=== PATIENT | female | born 1960 | race Caucasian/White ===

== ENCOUNTER 2018-02-03 14:17 | Emergency (ER) | END 2018-02-03 16:54 | disposition left against medical advice (07) ==

== ENCOUNTER 2019-05-03 00:10 | Emergency (ER) | payer OTHER ==
[~2019-05-03] VITALS: Ht 157.5 cm; Wt 53.4 kg
[~2019-05-03 00:10] MED LIST: ACET1TAB40 PO
[2019-05-03 00:14] VITALS: Ht 157.5 cm; Wt 53.4 kg
[2019-05-03] MEDS ORDERED: LORAZEPAM 2 MG INJ IV ONE (01:00)
[2019-05-03] MEDS ORDERED: morphine 4 MG/ML VIAL IV STA (01:21)
--- NOTE | 2019-05-03 01:23 | ERD ---
ER Documentation Chief Complaint Chief Complaint HEADACHE 10/10 STARTED 3 DAYS AGO. HPI This is a 59-year-old female with a history of hypertension and multiple sclerosis who presents to the emergency room for evaluation of multiple complaints including headache, total body pain. The patient states that she has had her symptoms for the past 3 days. The patient states that she came to the ER today for evaluation of her headache and body pain. She has taken some [id number] medications without relief and came to the ER for further evaluation. ROS All systems reviewed and are negative except as per history of present illness. Allergies Allergies: Coded Allergies: Unknown: Unable to obtain (Unverified , 05/03/19) PMhx/Soc History of Surgery: Yes (breast biposy) Anesthesia Reaction: No Hx Miscellaneous Medical Probl: Yes (MS) Hx Alcohol Use: No Hx Substance Use: No Hx Tobacco Use: No Smoking Status: Never smoker Physical Exam Vitals Vital Signs Date Temp Pulse Resp B/P (MAP) Pulse Ox O2 O2 Flow FiO2 Time Delivery Rate 05/03/19 60 14 112/78 100 Room Air 00:30 (89) 05/03/19 96.3 69 15 146/66 99 00:14 (92) Physical Exam INITIAL VITAL SIGNS: Reviewed by me GENERAL: The patient is well developed and appropriate for usual state of health in no apparent distress HEENT: Pupils equal, round, and reactive to light. EOMI. There is no scleral icterus. NECK: C-spine is soft and supple, there is no meningismus. There is no cervical lymphadenopathy. LUNGS: Clear to auscultation bilaterally. There are no rales, wheezes or rhonchi. HEART: Regular rate and rhythm, no murmurs, clicks, rubs or gallops. ABDOMEN: Soft, non-tender, non-distended. There are bowel sounds in all four quadrants. No rebound or guarding. EXTREMITIES: There is no peripheral cyanosis or edema. No focal swelling or erythema. NEUROLOGICAL: The patient moves all four extremities with 5/5 strength. Cranial nerves II - XII are intact. Normal gait. Alert and oriented SKIN: There is no apparent rash or petechiae. HEME/LYMPHATIC: There is no evidence of excessive bruising or lymphedema. PSYCHIATRIC: The patient does appear to be extremely anxious Result Diagram: 05/03/19 0045 05/03/19 0045 Results 24 hrs Laboratory Tests Test 05/03/19 00:45 White Blood Count 6.1 10^3/ul Red Blood Count 4.54 10^6/ul Hemoglobin 13.8 g/dl Hematocrit 40.5 % Mean Corpuscular Volume 89.2 fl Mean Corpuscular Hemoglobin 30.4 pg Mean Corpuscular Hemoglobin Concent 34.1 g/dl Red Cell Distribution Width 12.1 % Platelet Count 231 10^3/UL Mean Platelet Volume 8.3 fl Immature Granulocytes % 0.000 % Neutrophils % 50.0 % Lymphocytes % 39.1 % Monocytes % 6.7 % Eosinophils % 3.9 % Basophils % 0.3 % Nucleated Red Blood Cells % 0.0 /100WBC Immature Granulocytes # 0.000 10^3/ul Neutrophils # 3.1 10^3/ul Lymphocytes # 2.4 10^3/ul Monocytes # 0.4 10^3/ul Eosinophils # 0.2 10^3/ul Basophils # 0.0 10^3/ul Nucleated Red Blood Cells # 0.0 10^3/ul Prothrombin Time 12.4 Sec Prothrombin Time Ratio 1.0 INR International Normalized Ratio 0.91 Activated Partial Thromboplast Time 27.1 Sec Sodium Level 144 mmol/L Potassium Level 3.7 mmol/L Chloride Level 107 mmol/L Carbon Dioxide Level 23 mmol/L Anion Gap 14 Blood Urea Nitrogen 17 mg/dl Creatinine 0.78 mg/dl Est Glomerular Filtrat Rate mL/min > 60 mL/min Glucose Level 103 mg/dl Calcium Level 10.2 mg/dl Current Medications Medications Dose Sig/Kenrick Start Time Status Last (Trade) Ordered Route PRN Stop Time Admin Dose Reason Admin Lorazepam 1 mg ONCE ONCE 05/03/19 DC 05/03/19 (Ativan) IV 01:00 05/03/19 00:52 01:01 Morphine 4 mg ONCE STAT 05/03/19 DC 05/03/19 Sulfate IV 01:21 05/03/19 01:48 (morphine) 01:22 60 mg ONCE ONCE 05/03/19 DC 05/03/19 Methylprednis IV 01:30 05/03/19 01:47 olone Sodium 01:31 Succinate (Solu-Medrol) Procedures/MDM CT brain without: No acute process This 59-year-old female presents to the emergency room for evaluation of headache for the past 3 days. On my exam the patient did appear to be extremely anxious. She had no focal neurological deficits and the patient did have lab work drawn which is normal. The patient was given Ativan which significantly helped however she still continues to have some pain and was given IV Solu-Medrol and morphine. CT of her brain is normal and the patient has been hemodynamically stable in the emergency room, she has had no seizure activity and on reevaluation states she is feeling much better. This patient could have a flareup of MS which have caused her symptoms however given her resolution of symptoms the patient stable for discharge home at this time with strict return precautions and follow-up with her neurologist. Departure Diagnosis: Primary Impression: Headache Additional Impression: Multiple sclerosis exacerbation Condition: FABBY Loomis DO May 03, 2019 01:23
[2019-05-03] MEDS ORDERED: METHYLPREDNISOLONE 125 MG INJ IV ONE (01:30)
[2019-05-03 02:39] VITALS: BP 102/67; PULSE 58; RESP 15
== END 2019-05-03 02:39 | disposition home or self-care (01) ==
LOC: E/R 00:10
DX: G35 Multiple sclerosis (principal); R40.2142 Coma scale, eyes open, spontaneous, at arrival to emergency department; R40.2362 Coma scale, best motor response, obeys commands, at arrival to emergency department; R40.2252 Coma scale, best verbal response, oriented, at arrival to emergency department; I10 Essential (primary) hypertension
CPT/HCPCS: 36415; 70450; 80048; 85025; 85610; 85730; 96374; 96375; J2060; J2270; J2930; Z7502